=== PATIENT | male | born 1935 | race Caucasian/White ===

== ENCOUNTER → 2016-08-29 | Outpatient (CLI) | payer OTHER | LOC: MMPC 09:00 | PROVIDERS: ATTEND Family Medicine | DX: R51 Headache (principal); R09.89 Other specified symptoms and signs involving the circulatory and respiratory systems; G47.00 Insomnia, unspecified; M25.511 Pain in right shoulder | CPT/HCPCS: 99214 ==

== ENCOUNTER → 2016-09-03 | Outpatient (CLI) | payer OTHER ==
--- NOTE | 2016-09-03 21:55 | DI ---
CT SINUS SCAN, 09/03/2016 11:01 AM : Clinical History: Chronic non-intractable headache. Previous Exam: None at this facility. Scans are obtained from the base of the skull through the paranasal sinuses in the axial plane using very low dose with high resolution technique. Direct coronal and sagittal reformatted images are gene rated perpendicular to the hard palate. The frontal, ethmoid, maxillary, and sphenoid sinuses are normal. The ostiomeatal complex is normal. The bony septum deviates minimally to the left of midline. READING: Normal CT sinus scan.
== END ==
LOC: CT 10:57
PROVIDERS: ATTEND Family Medicine
DX: R51 Headache (principal); R09.89 Other specified symptoms and signs involving the circulatory and respiratory systems; J34.2 Deviated nasal septum
CPT/HCPCS: 70486

== ENCOUNTER → 2017-02-06 | Outpatient (CLI) | payer OTHER | LOC: MMPC 09:00 | PROVIDERS: ATTEND Family Medicine | DX: G47.00 Insomnia, unspecified (principal); M25.511 Pain in right shoulder; R03.0 Elevated blood-pressure reading, without diagnosis of hypertension ==

== ENCOUNTER → 2017-02-23 | Outpatient (CLI) | payer OTHER | LOC: MMPC 09:00 | PROVIDERS: ATTEND Family Medicine | DX: G47.00 Insomnia, unspecified (principal); R53.81 Other malaise; G89.29 Other chronic pain | CPT/HCPCS: 99214; G0463 ==

== ENCOUNTER → 2017-04-01 | Outpatient (CLI) | payer OTHER ==
[2017-04-01 12:58] LABS: BASOPHILS # (AUTO) 0.07 10*3/UL; BASOPHILS % (AUTO) 1.1 % (0-1); EOSINOPHILS % (AUTO) 7.8 % (0-8); HEMOGLOBIN 13.2 g/dL (14.0-18.0); LYMPHOCYTES # (AUTO) 1.49 10*3/uL; MEAN CORPUSCULAR HEMOGLOBIN 26.9 PG (27-31); MEAN CORPUSCULAR HGB CONC 32.2 g/dL (33-37); MEAN CORPUSCULAR VOLUME 83.5 FL (80-90); MEAN PLATELET VOLUME 9.1 FL (7.4-12.2); MONOCYTES # (AUTO) 0.67 10*3/UL (0.3-0.8); MONOCYTES % (AUTO) 10.4 % (5-15); NEUTROPHILS # (AUTO) 3.68 10*3/UL; NEUTROPHILS % (AUTO) 57.3 % (50-80); RED BLOOD COUNT 4.91 10^6/uL (4.70-6.10)
[2017-04-01 13:19] LABS: CALCIUM 9.9 mg/dL (8.7-10.7); PLATELET MORPHOLOGY COMMENT NORMAL MORPHOLOGY (NORM); RBC MORPHOLOGY COMMENT NORMAL MORPHOLOGY (NORM); SERUM ALBUMIN 4.2 g/dL (3.5-4.8); WBC MORPHOLOGY COMMENT NORMAL MORPHOLOGY (NORM)
[2017-04-01 14:26] LABS: ERYTHROCYTE SEDIMENTATION RATE 16 MM/HR (0-15)
[2017-04-02 13:18] LABS: PSATOTAL 10.5 ng/mL (<=6.5)
[2017-04-02 14:07] LABS: FREE PSA/PSA RATIO SEE COMMENTS ratio (())
== END ==
LOC: MOB LAB 11:59
PROVIDERS: ATTEND Family Medicine
DX: I25.10 Atherosclerotic heart disease of native coronary artery without angina pectoris (principal); G47.00 Insomnia, unspecified; G89.29 Other chronic pain; R03.0 Elevated blood-pressure reading, without diagnosis of hypertension; R07.9 Chest pain, unspecified; R51 Headache; R53.81 Other malaise; R97.20 Elevated prostate specific antigen [PSA]; M25.542 Pain in joints of left hand; M25.541 Pain in joints of right hand
CPT/HCPCS: 36415; 80053; 82306; 82607; 84153; 84154; 84443; 85025; 85652; 86038